=== PATIENT | male | born 1940 | race Caucasian/White ===

== ENCOUNTER 2017-02-23 07:30 | Day surgery (SDC) | payer MEDICARE, BC ==
--- NOTE | ~2017-02-23 | EGD ---
EGD REPORT [facility] [address] [place] [address] NAME: ELLIOT JONES : 40 STATUS : REG [facility]#: [id number] AGE: 77 ADM/REG DATE : 02/23/17 MR#: [id number] REPORT SERV DATE: 02/23/17 DICTATED BY: BRANDEN DAVIES DATE: 02/23/17 REPORT STATUS : Draft [facility] DATE: 02/23/17 End[facility] Center Patient Name: Elliot Jones Date of : 1940 Attending MD: BRANDEN DAVIES MD Procedure Date No Time: 02/23/2017 Procedure: Upper GI endoscopy Indications: Dysphagia Referring MD: SHILPA PEÑA MD Medicines: Monitored Anesthesia Care Complications: No immediate complications. Procedure: Pre-Anesthesia Assessment: - ASA Grade Assessment: III - A patient with severe systemic disease. After obtaining informed consent, the endoscope was passed under direct vision. Throughout the procedure, the patient's blood pressure, pulse, and oxygen saturations were monitored continuously. The GIF [id number] was introduced through the mouth, and advanced to the second part of duodenum. The upper GI endoscopy was accomplished without difficulty. The patient tolerated the procedure well. Findings: A mild Schatzki ring (acquired) was found in the lower third of the esophagus. A guidewire was placed and the scope was withdrawn. Dilation was performed with a Savary dilator with mild resistance at 45 Fr and mild resistance at 48 Fr. Patchy mild inflammation characterized by erythema was found in the gastric antrum. Biopsies were taken with a cold forceps for histology. The cardia and gastric fundus were normal on retroflexion. Few non-bleeding superficial duodenal ulcers with no stigmata of bleeding were found in the duodenal bulb. The largest lesion was 2 mm in largest dimension. Biopsies were taken with a cold forceps for histology. Impression: - Mild Schatzki ring. Dilated. - Gastritis. Biopsied. - Multiple duodenal ulcers with clean base. Biopsied. Recommendation: - Patient has a contact number available for emergencies. The signs and symptoms of potential delayed complications were discussed with the patient. Return to normal activities tomorrow. Written discharge instructions were provided to the patient. - Regular diet. EGD REPORT [address] [address] NAME: ELLIOT JONES : [birth year] STATUS : REG [facility] [place] PAT#: [id number] AGE: 77 ADM/REG DATE : 02/23/17 MR#: [id number] REPORT SERV DATE: 02/23/17 DICTATED BY: BRANDEN DAVIES DATE: 02/23/17 REPORT STATUS : Draft TRANSCRIBED BY: [employer] [facility] DATE: 02/23/17 - Continue present medications. - Use Prilosec (omeprazole) 40 mg PO daily. - Discontinue Zantac (ranitidine). - Repeat the upper endoscopy PRN for retreatment. Procedure Code(s): --- Professional --- 72443, Esophagogastroduodenoscopy, flexible, transoral; with insertion of guide wire followed by passage of dilator(s) through esophagus over guide wire 88933, Esophagogastroduodenoscopy, flexible, transoral; with biopsy, single or multiple Diagnosis Code(s): --- Professional --- K22.2, Esophageal obstruction K29.70, Gastritis, unspecified, without bleeding K26.9, Duodenal ulcer, unspecified as acute or chronic, without hemorrhage or perforation R13.10, Dysphagia, unspecified CPT copyright 2013 [employer]. All rights reserved. The codes documented in this report are preliminary and upon economic historian review may be revised to meet current compliance requirements. BRANDEN DAVIES MD 02/23/2017 9:24 AM This report has been signed electronically. Number of Addenda: 0 Note Initiated On: 02/23/2017 9:05 AM Scope Withdrawal Time 0 hours 0 minutes 0 seconds [id number] [id number]
[~2017-02-23 07:30] MED LIST: ASAB PO; B12250T PO; CALCIUM-MAG-ZINC PO; DSS PO; FOLIC PO; GLUCOTROL5 PO; LORTAB10 PO; LOTREL1 CA2 PO; NORV10 PO; P5 PO; PCET PO; PLAQ200B PO; PRAV10 PO; PREDNISONE2.5 MG PO; PRILO PO; PROVHFA INH; TREXALL7.5 MG PO; VITC500 PO; ZANTAC150 MG PO; ZOFRAN8 PO; [UNRECOGNIZED DRUG - OTHER] PO
== END 2017-02-23 23:59 | disposition home or self-care (01) ==
LOC: DMU 07:30
PROVIDERS: Internal Medicine Gastroenterology
PROC: 0DB98ZX Excision of Duodenum, Via Natural or Artificial Opening Endoscopic, Diagnostic (ICD-10-PCS; 2017-02-23)
PROC: 0D738ZZ Dilation of Lower Esophagus, Via Natural or Artificial Opening Endoscopic (ICD-10-PCS; principal; 2017-02-23 09:00)
PROC: 0DB68ZX Excision of Stomach, Via Natural or Artificial Opening Endoscopic, Diagnostic (ICD-10-PCS; 2017-02-23 09:00)
DX: K29.80 Duodenitis without bleeding (principal); K22.2 Esophageal obstruction; K29.70 Gastritis, unspecified, without bleeding; I10 Essential (primary) hypertension; I25.10 Atherosclerotic heart disease of native coronary artery without angina pectoris; I25.2 Old myocardial infarction; E11.9 Type 2 diabetes mellitus without complications; M19.90 Unspecified osteoarthritis, unspecified site; Z88.5 Allergy status to narcotic agent; Z88.1 Allergy status to other antibiotic agents; Z87.891 Personal history of nicotine dependence; Z87.442 Personal history of urinary calculi; Z85.118 Personal history of other malignant neoplasm of bronchus and lung; Z96.1 Presence of intraocular lens; Z90.2 Acquired absence of lung [part of]; Z79.82 Long term (current) use of aspirin; Z79.52 Long term (current) use of systemic steroids; Z79.899 Other long term (current) drug therapy; Z98.890 Other specified postprocedural states
CPT/HCPCS: 82962; 88305